=== PATIENT | female | born 2005 | race African-American/Black ===

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

== ENCOUNTER 2025-01-20 09:52 | Emergency (ER) | payer OTHER | END 2025-01-20 10:18 | disposition home or self-care (01) | LOC: BURERS 09:52 | DX: H60.501 Unspecified acute noninfective otitis externa, right ear (principal) | CPT/HCPCS: 99282 ==

== ENCOUNTER 2025-02-05 18:25 | Emergency (ER) | payer OTHER ==
[2025-02-05] MEDS ORDERED: Tetracaine 0.5% PF 4 ML BOT ONE (19:10)
[2025-02-05] MEDS ORDERED: Fluorescein Opthalmic Strip ONE (19:10)
== END 2025-02-05 19:50 | disposition home or self-care (01) ==
LOC: BURERS 18:25
DX: H10.503 Unspecified blepharoconjunctivitis, bilateral (principal)
CPT/HCPCS: 99283

== ENCOUNTER 2025-02-17 13:21 | Emergency (ER) | payer OTHER ==
[2025-02-17] MEDS ORDERED: Ketorolac Tromethamine 30 MG (1 mL) VIAL ONE (13:53)
== END 2025-02-17 13:55 | disposition home or self-care (01) ==
LOC: BURERS 13:21
DX: K29.00 Acute gastritis without bleeding (principal)
CPT/HCPCS: 96372; 99283; J1885; Q0162